=== PATIENT | male | born 1950 | race Caucasian/White ===

== ENCOUNTER 2020-04-20 16:21 | Emergency (ER) | payer MEDICARE, OTHER ==
[~2020-04-20 16:21] MED LIST: CEFEPIME HCL1 GM INJ; CEFEPIME HCL2 GM INJ; CIPRO500 MG PO; COZAAR 25MG TAB25 MG PO; CRESTOR10 MG PO; HYDROCODON-ACE1 EAC2 PO; INDERAL TAB 2020 MG PO; LOPRESSOR 25 MG25 MG PO; MOBIC7.5 MG PO; NIZORAL120 ML TP; OMEPRAZOLE20 MG PO; PRAMOSONE 2.528.4 GM TOP; PREDNISONE 20 M20 MG PO; PROAIR DIGIHAL90 MCG INH; REMERON30 MG PO; SIMETHICONE80 MG PO; SINGULAIR10 MG PO; SPIRIVA HANDIH18 MCG INH; SYMBICORT 160-1 INHA INH; SYNTHROID75 MCG PO; TACROLIMUS TOP; TERA-GEL TAR118 ML TOP; VIAGRA100 MG PO; VITAMIN D3 PO; [UNRECOGNIZED DRUG - OTHER] TP
[2020-04-20 19:52] LABS: HEMOGLOBIN 11.1 gm/dl (14.0-17.5); RED BLOOD COUNT 4.74 M/UL (4.20-5.50)
== END 2020-04-20 22:00 | disposition home or self-care (01) ==
LOC: ER1 16:21
PROVIDERS: Physician Assistant
DX: U07.1 COVID-19 (principal); I10 Essential (primary) hypertension; E78.5 Hyperlipidemia, unspecified; E07.9 Disorder of thyroid, unspecified; F17.210 Nicotine dependence, cigarettes, uncomplicated
CPT/HCPCS: 36415; 71045; 80053; 85025; 99283; J7030; M0239

== ENCOUNTER 2020-06-01 19:03 | Inpatient (IN) | payer MEDICARE, OTHER ==
[~2020-06-01] VITALS: Ht 175.3 cm; Wt 120.2 kg
[2020-06-01 19:46] LABS: HEMOGLOBIN 10.1 gm/dl (14.0-17.5); RED BLOOD COUNT 4.32 M/UL (4.20-5.50); WHITE BLOOD COUNT 6.1 K/UL (4.5-11.0)
[2020-06-01 20:17] LABS: BUN/CREATININE RATIO 10 (0-10)
--- NOTE | 2020-06-02 11:08 | NUR ---
06/02/20 1105 TELE CALLED SAID THAT SAT WAS 86% PT LAYING IN BED TALKING ON PHONE, O2 PLACED BACK ON PATIENT AND ENCOURAGED TO WEAR
[2020-06-05] MEDS ORDERED: SYNTHROID100 MCG PO (09:19)
[2020-06-05] MEDS ORDERED: ATORVASTATIN CA10 MG PO (09:19)
--- NOTE | 2020-06-05 11:30 | NUR ---
PATIENT VERY ANXIOUS AWAITING HIS DISCHARGE PAPERWORK. DR. WILLIAM ORDERED DISCHARGE, BUT PATIENT'S PAPERWORK WAS NOT YET READY. PATIENT WAS NOTIFIED SEVERAL TIMES TO PLEASE WAIT FOR PAPERWORK SO EDUCATION CAN BE GIVEN REGARDING POST-OP INFORMATION AND MEDICATIONS. PATIENT WALKED OUT OF HOSPITAL WITHOUT WAITING FOR PAPERWORK. IV WAS REMOVED PER CHRISTY CHEN RN. PATIENT NEVER RETURNED.
--- NOTE | 2020-06-05 13:34 | NUR ---
ATTEMPTED TO REACH PATIENT REGARDING PRESCRIPTIONS HE LEFT AT HOSPITAL WELL LAB ORDERS. UNABLE TO REACH PATIENT.
== END 2020-06-05 11:38 | disposition home or self-care (01) | DRG 287 ==
LOC: ER1 19:03 → MED SURG 4 20:30 → CDU 20:30 → MED SURG 4 20:30
PROVIDERS: Emergency Medicine; Internal Medicine Infectious Disease; ADMIT Internal Medicine
PROC: 4A023N7 Measurement of Cardiac Sampling and Pressure, Left Heart, Percutaneous Approach (ICD-10-PCS; principal; 2020-06-04)
PROC: B2111ZZ Fluoroscopy of Multiple Coronary Arteries using Low Osmolar Contrast (ICD-10-PCS; 2020-06-04)
PROC: B2151ZZ Fluoroscopy of Left Heart using Low Osmolar Contrast (ICD-10-PCS; 2020-06-04)
DX: I20.0 Unstable angina (principal); E03.9 Hypothyroidism, unspecified; N40.0 Benign prostatic hyperplasia without lower urinary tract symptoms; M19.90 Unspecified osteoarthritis, unspecified site; J44.9 Chronic obstructive pulmonary disease, unspecified; I87.8 Other specified disorders of veins; I12.9 Hypertensive chronic kidney disease with stage 1 through stage 4 chronic kidney disease, or unspecified chronic kidney disease; E11.22 Type 2 diabetes mellitus with diabetic chronic kidney disease; E78.5 Hyperlipidemia, unspecified; Z20.822 Contact with and (suspected) exposure to COVID-19; E66.9 Obesity, unspecified; I44.7 Left bundle-branch block, unspecified; N18.30 Chronic kidney disease, stage 3 unspecified; Z82.49 Family history of ischemic heart disease and other diseases of the circulatory system; Z83.3 Family history of diabetes mellitus; Z87.891 Personal history of nicotine dependence; Z79.4 Long term (current) use of insulin
CPT/HCPCS: 36415; 71045; 75710; 78452; 80048; 80053; 80061; 82550; 82553; 82962; 83690; 83735; 83874; 83880; 84100; 84443; 84484; 85025; 85610; 85730; 93005; 93017; 94660; 96372; 96374; 99152; 99153; 99285; A6212; A9502; C1760; C1769; G0378; J0461; J1644; J1650; J2250; J2405; J2785; J3010; Q9963; Q9967; U0002

== ENCOUNTER → 2020-12-02 | Outpatient (CLI) | payer OTHER ==
[~2020-12-02] MED LIST changes: +ATORVASTATIN CA10 MG PO; +SYNTHROID100 MCG PO
== END ==
LOC: KOH-I 11-26 13:30
DX: R59.0 Localized enlarged lymph nodes (principal)
CPT/HCPCS: 76882

== ENCOUNTER 2021-06-27 11:27 | Emergency (ER) | payer OTHER ==
[2021-06-27 12:28] LABS: HEMOGLOBIN 13.4 gm/dl (14.0-17.5); RED BLOOD COUNT 4.65 M/UL (4.20-5.50); WHITE BLOOD COUNT 9.1 K/UL (4.5-11.0)
[2021-06-27 12:49] LABS: BUN/CREATININE RATIO 11 (0-10)
== END 2021-06-27 18:10 | disposition short-term general hospital (02) ==
LOC: ER1 11:27
PROVIDERS: Emergency Medicine
DX: A41.9 Sepsis, unspecified organism (principal); J44.0 Chronic obstructive pulmonary disease with (acute) lower respiratory infection; J18.9 Pneumonia, unspecified organism; E11.22 Type 2 diabetes mellitus with diabetic chronic kidney disease; Z20.822 Contact with and (suspected) exposure to COVID-19; N18.9 Chronic kidney disease, unspecified; D69.6 Thrombocytopenia, unspecified; I25.10 Atherosclerotic heart disease of native coronary artery without angina pectoris; Z95.0 Presence of cardiac pacemaker
CPT/HCPCS: 0240U; 71045; 80053; 81001; 82550; 82553; 83605; 84484; 85025; 87040; 93005; 96374; 96375; 99285; J0692; J2405; J3370; J7030

== ENCOUNTER 2021-09-14 17:55 | Emergency (ER) | payer OTHER | END 2021-09-14 19:15 | disposition left against medical advice (07) | LOC: ER1 17:55 | DX: Z53.21 Procedure and treatment not carried out due to patient leaving prior to being seen by health care provider (principal) ==

== ENCOUNTER 2021-10-18 15:53 | Emergency (ER) | payer OTHER ==
[2021-10-18 18:20] LABS: HEMOGLOBIN 10.5 gm/dl (14.0-17.5); RED BLOOD COUNT 3.85 M/UL (4.20-5.50); WHITE BLOOD COUNT 7.2 K/UL (4.5-11.0)
== END 2021-10-18 20:49 | disposition home or self-care (01) ==
LOC: ER1 15:53
PROVIDERS: Emergency Medicine
DX: U07.1 COVID-19 (principal); E87.6 Hypokalemia; D64.9 Anemia, unspecified; D69.6 Thrombocytopenia, unspecified; I48.91 Unspecified atrial fibrillation; E11.9 Type 2 diabetes mellitus without complications; I10 Essential (primary) hypertension; Z79.01 Long term (current) use of anticoagulants; J44.9 Chronic obstructive pulmonary disease, unspecified; Z95.0 Presence of cardiac pacemaker
CPT/HCPCS: 71045; 80053; 85025; 99284; M0222